=== PATIENT | female | born 1965 | race Hispanic/Latino ===

== ENCOUNTER 2018-05-28 10:01 | Inpatient (IN) | payer MEDICARE ==
[2018-05-28 10:05] VITALS: BMI 19.4
[2018-05-28 10:06] VITALS: O2SAT 99
--- NOTE | 2018-05-28 11:48 | ED PDOC ---
HPI: Psych/Substance Abuse Time Seen by Provider: 05/28/18 10:26 Chief Complaint (Nursing): Psychiatric Evaluation History Per: Patient Additional Complaint(s): Pt. states since Monday she's had worsening depression and suicidal thoughts which became even worse this morning. Pt. states she wants to take a lot of pills to "sleep." States symptoms began after she started Effexor prescribed to her by her psychiatrist. Denies HI, hallucinations, pain, dizziness, SOB. Past Medical History Reviewed: Historical Data, Nursing Documentation, Vital Signs Vital Signs: Last Vital Signs Temp 98.4 F 05/28/18 10:05 Pulse 79 05/28/18 10:05 Resp 17 05/28/18 10:05 BP 116/77 05/28/18 10:05 Pulse Ox 99 05/28/18 10:05 - Medical History PMH: Depression - Surgical History Surgical History: (x2) - Family History Family History: States: No Known Family Hx - Home Medications Home Medications: Ambulatory Orders Medication Instructions Recorded Clonazepam [Klonopin] 2 mg PO Q12 05/28/18 Venlafaxine [Effexor XR] 37.5 mg PO DAILY 05/28/18 - Allergies Allergies/Adverse Reactions: Allergies Allergy/AdvReac Type Severity Reaction Status Date / Time No Known Allergies Allergy Verified 05/28/18 10:10 Review of Systems ROS Statement: Except As Marked, All Systems Reviewed And Found Negative Psych: Positive for: Depression, Suicidal ideation Physical Exam - Physical Exam Appears: Positive for: Well, Non-toxic, No Acute Distress Skin: Positive for: Normal Color, Warm. Negative for: Rash Eye Exam: Positive for: Normal appearance ENT: Positive for: Normal ENT Inspection Neck: Positive for: Normal, Painless ROM Cardiovascular/Chest: Positive for: Regular Rate, Rhythm Respiratory: Positive for: Normal Breath Sounds. Negative for: Respiratory Di stress Gastrointestinal/Abdominal: Positive for: Normal Exam, Soft. Negative for: Tenderness Back: Positive for: Normal Inspection Neurologic/Psych: Positive for: Alert, Oriented (x3), Mood/Affect (depressed mood, cooperative) - Laboratory Results Result Diagrams: 05/28/18 12:10 05/28/18 12:10 - ECG ECG: Positive for: Interpreted By Me ECG Rhythm: Positive for: Sinus Rhythm. Negative for: ST/T Changes O2 Sat by Pulse Oximetry: 99 - Radiology X-Ray: Interpreted by Me (CXR) X-Ray Interpretation: No Acute Disease - Progress ED Course And Treament: Labs, EKG, CXR, crisis eval ordered. Pt. placed on 1:1. UA showed UTI. Urine C&S, macrbid PO ordered. Pt evaluated by CW who spoke with Dr. Maldonado who requests pt. to be admitted. Disposition - Clinical Impression Clinical Impression: UTI (urinary tract infection), Bipolar disorder, unspecified - Patient ED Disposition Is Patient to be Admitted: Yes - Disposition Disposition Time: 14:15 Condition: FAIR
[2018-05-28 12:21] LABS: BASO % 0.8 % (0.0-2.0); EOS # 0.2 K/uL (0.0-0.7); EOS % 2.8 % (0.0-4.0); HEMOGLOBIN 12.7 g/dL (12.0-16.0); LYMPH # 1.8 K/uL (1.0-4.3); LYMPH % 31.1 % (20.0-40.0); MEAN CELL VOLUME 86.2 fl (81.0-99.0); MEAN CORPUSCULAR HGB CONC 33.6 g/dL (33.0-37.0); MEAN PLATELET VOLUME 8.5 fl (7.2-11.7); MONO # 0.5 K/uL (0.0-0.8); MONO % 9.5 % (0.0-10.0); NEUT # 3.2 K/uL (1.8-7.0); NEUT % 55.8 % (50.0-75.0); RBC 4.4 Mil/uL (3.80-5.20); RED CELL DISTRIBUTION WIDTH 13.1 % (11.5-14.5); WHITE BLOOD COUNT 5.6 K/uL (4.8-10.8)
[2018-05-28 12:35] LABS: ALB/GLOB RATIO 1.2 (1.0-2.1); ALBUMIN 4.1 g/dL (3.5-5.0); ALT/SGPT 23 U/L (9-52); AST/SGOT 18 U/L (14-36); BLOOD UREA NITROGEN 14 mg/dl (7-17); CALCIUM 9.3 mg/dL (8.4-10.2); GFR NON-AFRICAN AMERICAN > 60
[2018-05-28 12:40] LABS: ACETAMINOPHEN < 10.0 ug/ml (10.0-30.0); SALICYLATE < 1.0 mg/dl
--- NOTE | 2018-05-28 12:53 | CARD ---
APPROVED REPORT Date of service: 05/28/2018 EKG Measurement Heart [id number] [id number] <Conclusion> Normal sinus rhythm with sinus arrhythmia Normal ECG
[2018-05-28 13:27] LABS: BARBITURATES, UR NEGATIVE (NEGATIVE); BENZODIAZEPINES, UR POSITIVE (NEGATIVE); OPIATES, UR NEGATIVE (NEGATIVE); PHENCYCLIDINE, UR NEGATIVE (NEGATIVE)
[2018-05-28 13:30] LABS: SQUAMOUS EPITHIAL 12 /hpf (0-5); URINE BILIRUBIN NEGATIVE (NEGATIVE); URINE BLOOD MODERATE (NEGATIVE); URINE CLARITY TURBID (Clear); URINE COLOR YELLOW (YELLOW); URINE GLUCOSE (UA) NEG (NEGATIVE); URINE LEUKOCYTE ESTERASE LARGE Leu/uL (Negative); URINE PROTEIN NEGATIVE (NEGATIVE); URINE UROBILINOGEN 0.2-1.0 mg/dL (0.2-1.0); WBC CLUMPS RARE /hpf
[2018-05-28 13:45] LABS: URINE BACTERIA MOD /hpf
--- NOTE | 2018-05-28 17:00 | RAD ---
Date of service: 05/28/2018 HISTORY: clearance COMPARISON: No prior. FINDINGS: LUNGS: No active pulmonary disease. PLEURA: No significant pleural effusion identified, no pneumothorax apparent. CARDIOVASCULAR: No aortic atherosclerotic calcification present. Normal cardiac size. No pulmonary vascular congestion. OSSEOUS STRUCTURES: No significant abnormalities. VISUALIZED UPPER ABDOMEN: Normal. OTHER FINDINGS: None. IMPRESSION: No acute cardiopulmonary disease appreciated.
[2018-05-28] MEDS ORDERED: Magnesium Hydroxide Susp 30 ml UD PO PRN (17:52)
[2018-05-28] MEDS ORDERED: DiphenhydrAMINE 50 mg/ml Inj IM PRN (17:52)
[2018-05-28] MEDS ORDERED: Alum-Mag Hydrox-Simethicone Susp (30 mL) PO PRN (17:52)
--- NOTE | 2018-05-28 18:22 | PCM.BM ---
<Justice Can Danny - Last Filed: 05/28/18 18:18> Treatment Plan Problems - Problems identified on initial assessmt Suicidal Ideation Date Initiated: 05/28/18 Time Initiated: 18:00 Assessment reference: NA medication nonadherence Date Initiated: 05/28/18 Time Initiated: 18:00 Assessment reference: NA ineffective Impulse Control Date Initiated: 05/28/18 Time Initiated: 18:00 Assessment reference: NA High Risk: Injury Date Initiated: 05/28/18 Time Initiated: 18:00 Assessment reference: NA Social Isolation Date Initiated: 05/28/18 Time Initiated: 18:00 Assessment reference: NA Suicidal Behaviors Date Initiated: 05/28/18 Time Initiated: 18:00 Assessment reference: NA <Sonja Bowie - Last Filed: 05/31/18 15:33> Treatment assets and liabiliti Patient Assests: adapts well, cooperative, resourceful, self-reliant, ADL independent, physically healthy, good support system (Pt. reports having a loving relationship with boyfriend of 6 months who pt. refers to as her fianc. Pt. reports having a supportive relationship with 2 adult sons and frequent communication with family in [place] (recently visited for 20 days). ), negotiates basic needs, good past tx response, cognitively intact Patient Liabilities: live alone Family Contact Family involvement: Family/SO is involved Family contact: Patient agrees to contact, Family has been contacted by patient, Telephone contact initiated by staff Family contact name: Jay(fiance)([phone])/Kyle(son) ([phone]) Family contacted how many times per week?: 2 Family contact comment: [facility] placed call to pts boyfriend (Jay [phone]) to discuss pts progress on 3NP and address family concerns. Hooker Up provided clinical updates regarding pts progress since admission and current presentation on 3NP. Pts boyfriend notified of pts active 48 hour notice and request to be discharged. [facility]er Up provided psychoeducation regarding nature for tx provided on 3NP, 48 hour notice, and possible screening fo involuntary commitment. [facility]er Up provided information regarding pts current medication regimen and tx being recommended. Pts expressed understanding of the above. Pts boyfriend reporting knowing pt for past 6 months and always having known her to be sort of depressed but expressed that pt. currently looks as good as she ever has. Pts boyfriend denied having any concerns regarding pts safety or possible discharge, stating She doesnt seem like shes in any distress. Pts boyfriend explained that pt. has a safety plan that includes contacting him, her sons, and outpatient psychiatrist if pt feels unsafe. Pts boyfriend confirmed that pt. is welcome to stay with him and that he is willing to stay in her apartment upon discharge to ensure that pt. is well. Jay reported that he will give patients son writers contact number so he can call com writer after work. Hooker Up to contact pts boyfriend on 05/31 with updates regarding pts progress on 3NP and discharge planning. . Hooker Up placed call to pts boyfriend (Jay [phone]) to discuss pts progress on 3NP, anticipated discharge of 06/01, and aftercare. [facility]er Up provided clinical updates regarding pts current presentation and explained concerns regarding pts long-term use of high dosages of Klonopin. Hooker Up emphasized importance of adherence with outpatient mental health services to ensure safety/functioning in the community and reduce risk of future hospitalizations. Patients boyfriend expressed understanding of the above and commitment to continue to support pts prioritization of tx and self-care upon discharge. Patient requested to be present when support staff go over discharge instructions with patient so he will be better able to assist with adherence. Patient to be picked up by Jay on 06/01 at 11am. The above discussed with patient and covering SW EM. . Hooker Up placed call to pts son (Kyle [phone]) to discuss pts progress on 3NP/anticipated discharge of 06/01, collect further collateral information, and address any family concerns. [facility]er Up left brief message on unidentified voicemail with call back numbers for this com writer and covering SW EM. Hooker Up awaiting response. - Goals for Treatment Patient goals for treatment: Patient to continue stabilization on 3NP through medication management and group/supportive therapy to address sxs of depression, reduce intensity and frequency of panic attacks, and eliminate SI. Patient to be encouraged to attend groups regularly to promote self-awareness, and insight, and improve compliance, coping skills and self-esteem. Patient to be provided with referral for appropriate level of aftercare to reduce risk of future hospitalizations and ensure safety in the community. Pt. identified having antidepressant changed to address side effects and return to outpatient providers as primary tx goal. Discharge/Continuing Care - Education Needs Education Needs: Family Medication, Family Diagnosis/Disease Process, Family Community resources, Family Aftercare Safety Plan, Patient Medication, Patient Diagnosis/Disease Process, Patient Coping Skills, Patient Community resources, Patient Aftercare Safety Plan - Discharge Discharge Criteria: Tolerates medication w/o severe side effects, Free of Suicidal thoughts, Normal sleep pattern, Ability to care for self, Reduction of target symptoms (panic attacks, sleep disturbances, poor appetite,) Discharge to:: Home, Other (Pt. to stay with/have bf stay with her for the weeks following discharge.) - Treatment Team Participation Patient/Family/SO Statement: 05/31/18 15:41 Patient attended tx team on 05/30 to discuss precursors to hospitalization and tx goals. Pt. presents as depressed and easily irritable. Pt. reported recently experiencing side effects of Effexor and that Abilify was too sedating and was making it difficult for pt. to work and tend to daily responsibilities, resulting in nonadherence. Pt. contributed sxs of depression and suicidal ideations to having visited family in [place] and having to leave them behind again. Pt. denied sxs of depression or suicidal ideations during discussion with tx team, stating I feel fine. Im back on my meds. Being here is whats making me depressed. Patient has a 4 hour notice expiring on 05/31 at 2pm. Tx team provided extensive psychoeducation regarding nature of tx provided on 3NP and importance of proper stabilization on 3NP to ensure functioning/safety in the community and reduce risk of future hospitalizations. Risks of long-term high doses of Klonopin discussed at length. Pt. expressed understanding but reported that Klonopin has been the only thing successful in managing pts panic attacks. Pt. minimally receptive to feedback, adamantly denying needing inpatient tx and requesting to be discharged to follow-up with outpatient services ([facility]). Pt. reported plan to stay with boyfriend upon discharge. Patient provided tx team with consent for family and outpatient providers. Discussed with Family/SO: Yes Was Patient/Family/SO present at Treatment Team Meeting: Yes <Monique Maldonado - Last Filed: 06/01/18 09:10> - Diagnosis (1) Bipolar disorder Status: Acute Interventions: 06/01/18 09:09 PHARMACOTHERAPY (2) Depression Status: Acute Interventions: PSYCHOTHERAPY, PHARMACOTHERAPY 06/01/18 09:09
--- NOTE | 2018-05-29 12:29 | PCM.PSYCH ---
Initial Psychiatric Evaluation - Initial Psychiatric Evaluation Type of Admission: Voluntary Legal Status: Capacity Chief Complaint (in patient's own words): I do not want to continue to live like that Patient's Reaction to Hospitalization: pt requested help History of Present Illness and Precipitating Events: pt is 52 ys old female with previous psychiatric diagnosis of bipolar disorder and panic disorder presented to ER with suicidal ideation with plan to overdose on her medications , pt reportedly has not been compliant with her medications for past five months , recently came back from a vacation she had in [place] to visit he family, became increasingly depressed and lonely , after she met with her provider, she was started on effexor, became more depressed and anxious with frequent panic attacks, poor sleep with early insomnia, poor appetite, low energy and anhedonia, pt started having suicidal ideation with plan to overdose on the unit pt presenting with low energy, hopeless and helpless, denied active thoughts of self harm on the unit denied perceptual disturbances Current Medications: Active Medications Generic Name Dose Route Start Last Admin Trade Name Freq PRN Reason Stop Dose Admin Acetaminophen 650 mg 05/28/18 17:52 Tylenol 325mg Tab PO Q4 PRN Pain, moderate (4-7) Al Hydrox/Mg Hydrox/Simethicone 30 ml 05/28/18 17:52 Maalox Plus 30 Ml PO Q4 PRN Dyspepsia Aripiprazole 5 mg 05/29/18 12:11 Abilify PO 05/29/18 12:12 STAT STA Aripiprazole 10 mg 05/30/18 09:00 Abilify PO DAILY HAILEY Clonazepam 0.25 mg 05/29/18 13:00 Klonopin PO TID HAILEY Diphenhydramine HCl 50 mg 05/28/18 17:52 Benadryl IM Q6 PRN Extrapyramidal S/S Unable PO Diphenhydramine HCl 50 mg 05/28/18 17:52 Benadryl PO Q6 PRN Extrapyramidal Symptoms Diphenhydramine HCl 50 mg 05/28/18 21:20 05/28/18 22:37 Benadryl PO 50 mg HS PRN Administration Sleep Haloperidol 5 mg 05/28/18 17:52 Haldol PO Q4 PRN Agitation Haloperidol Lactate 5 mg 05/28/18 17:52 Haldol IM Q4 PRN Agitation, Unable to Take PO Lorazepam 2 mg 05/28/18 17:52 Ativan IM Q4 PRN Anxiety/Agitation,Unable PO Lorazepam 2 mg 05/28/18 17:52 Ativan PO Q4 PRN Anxiety/Agitation Magnesium Hydroxide 30 ml 05/28/18 17:52 Milk Of Magnesia PO HS PRN Constipation Mirtazapine 7.5 mg 05/29/18 22:00 Remeron PO HS HAILEY Past Psychiatric History - Past Psychiatric History Explanation of prior treatment: one hospitalization two years ago after suicidal attempt by overdose History of ETOH/Drug Use: non reported History of Family Illness: mother history of bipolar depression Pertinent Medical Hx (Current Medical&Sleep Prob, Allergies): Allergies Allergy/AdvReac Type Severity Reaction Status Date / Time No Known Allergies Allergy Verified 05/28/18 10:10 Clonazepam [Klonopin] 2 mg PO Q12 05/28/18 Venlafaxine [Effexor XR] 37.5 mg PO DAILY 05/28/18 Mental Status Examination - Personal Presentation Personal Presentation: Looks stated age - Affect Affect: Constricted, Depressed - Motor Activity Motor Activity: Psychomotor Retardation - Reliability in Providing Information Reliability in Providing Information: Poor, due to altered mood - Speech Speech: Relevant - Mood Mood: Depressed, Anxious - Formal Thought Process Formal Thought Process: Circumstantial - Obsessions/Compulsions Obsessions: No Compulsions: No - Cognitive Functions Orientation: Person, Place, Situation Sensorium: Alert Attention/Concentration: Easily distracted Estimate of Intelligence: Average Judgement: Imparied, as evidence by: Poor judgement - Risk Risk: Suicidal, Diminished functioning - Strength & Assets Inventory Strength & Assets Inventory: Employment history - Limitations Additional comments: poor compliance DSM 5 DX - DSM 5 DSM 5 Diagnosis: bipolar ii disorder MRE depressed severe panic disorder - Recommended/Plan of Treatment Treatment Recommendations and Plan of Treatment: pt will be started on abilify 5 mg , will be increased to 10mg klonopin 0.25mg tid, will be discontinued gradually remeron 7.5mg qhs CBT group and supportive therapy
--- NOTE | 2018-05-29 12:49 | CP.PCM.CON ---
History of Present Illness - History of Present Illness History of Present Illness: Medicine Consult Note 52 year old female patient, with PMHx of bipolar disorder and panic disorder, seen and evaluated in psych for UTI. Patient states that she came to the hospital because she was beginning to feel more depressed after taking her medication for depression. She states that she wants to leave the hospital and doesn't like being here. During her hospital stay she was told she had a UTI however is not currently experiencing any pain at this time and denies pain with urination. She denies any N/V/F/SOB/CP. PMHx: Bipolar disorder, panic disorder PSHx: Section FHx: Mother with bipolar depression SH: Admits to vaping, alcohol use, denies illicit drug use ALL: NKDA Review of Systems - Constitutional Constitutional: As Per HPI - Psychiatric Psychiatric: Abnormal Sleep Pattern, Depression Past Patient History - Past Social History Smoking Status: Never Smoked - CARDIAC Hx Cardiac Disorders: No - PULMONARY Hx Respiratory Disorders: No - NEUROLOGICAL Hx Neurological Disorder: No - HEENT Hx HEENT Problems: No - RENAL Hx Chronic Kidney Disease: No - ENDOCRINE/METABOLIC Hx Endocrine Disorders: No - HEMATOLOGICAL/ONCOLOGICAL Hx Blood Disorders: No - INTEGUMENTARY Hx Dermatological Problems: No - MUSCULOSKELETAL/RHEUMATOLOGICAL Hx Musculoskeletal Disorders: No - GASTROINTESTINAL Hx Gastrointestinal Disorders: No - GENITOURINARY/GYNECOLOGICAL Hx Genitourinary Disorders: No - PSYCHIATRIC Hx Depression: Yes - SURGICAL HISTORY Hx Surgeries: Yes Hx Section: Yes (2 c section, children are grown) - ANESTHESIA Hx Anesthesia: Yes Hx Anesthesia Reactions: No Meds Allergies/Adverse Reactions: Allergies Allergy/AdvReac Type Severity Reaction Status Date / Time No Known Allergies Allergy Verified 05/28/18 10:10 - Medications Medications: Current Medications Acetaminophen (Tylenol 325mg Tab) 650 mg PO Q4 PRN PRN Reason: Pain, moderate (4-7) Al Hydrox/Mg Hydrox/Simethicone (Maalox Plus 30 Ml) 30 ml PO Q4 PRN PRN Reason: Dyspepsia Aripiprazole (Abilify) 5 mg PO STAT STA Stop: 05/29/18 12:12 Aripiprazole (Abilify) 10 mg PO DAILY HAILEY Clonazepam (Klonopin) 0.25 mg PO TID HAILEY Diphenhydramine HCl (Benadryl) 50 mg IM Q6 PRN PRN Reason: Extrapyramidal S/S Unable PO Diphenhydramine HCl (Benadryl) 50 mg PO Q6 PRN PRN Reason: Extrapyramidal Symptoms Diphenhydramine HCl (Benadryl) 50 mg PO HS PRN PRN Reason: Sleep Last Admin: 05/28/18 22:37 Dose: 50 mg Haloperidol (Haldol) 5 mg PO Q4 PRN PRN Reason: Agitation Haloperidol Lactate (Haldol) 5 mg IM Q4 PRN PRN Reason: Agitation, Unable to Take PO Lorazepam (Ativan) 2 mg IM Q4 PRN PRN Reason: Anxiety/Agitation,Unable PO Lorazepam (Ativan) 2 mg PO Q4 PRN PRN Reason: Anxiety/Agitation Magnesium Hydroxide (Milk Of Magnesia) 30 ml PO HS PRN PRN Reason: Constipation Mirtazapine (Remeron) 7.5 mg PO HS HAILEY Physical Exam - Constitutional Appears: Non-toxic, No Acute Distress - Eye Exam Pupil Exam: NORMAL ACCOMODATION - Respiratory Exam Respiratory Exam: Clear to Auscultation Bilateral, NORMAL BREATHING PATTERN - Cardiovascular Exam Cardiovascular Exam: REGULAR RHYTHM - GI/Abdominal Exam GI & Abdominal Exam: Normal Bowel Sounds, Soft - Extremities Exam Extremities exam: Positive for: normal capillary refill, pedal pulses present. Negative for: pedal edema - Back Exam Back exam: NORMAL INSPECTION. absent: tenderness - Neurological Exam Neurological exam: Alert - Psychiatric Exam Psychiatric exam: Depressed, Flat Affect - Skin Skin Exam: Warm Results - Vital Signs Recent Vital Signs: Last Vital Signs Temp 96.8 F L 05/29/18 09:14 Pulse 72 05/29/18 09:14 Resp 17 05/29/18 09:14 BP 104/75 05/29/18 09:14 Pulse Ox 99 05/28/18 20:43 - Labs Result Diagrams: 05/28/18 12:10 05/28/18 12:10 Labs: Laboratory Results - last 24 hr 05/28/18 05/28/18 05/29/18 12:32 12:32 05:45 Triglycerides 57 Cholesterol 158 LDL Cholesterol Direct 86 HDL Cholesterol 50 Thyroxine (T4) 8.00 TSH 3rd Generation 1.24 Urine Color Yellow Urine Clarity Turbid Urine pH 6.0 Ur Specific [place] 1.010 Urine Protein Negative Urine Glucose (UA) Neg Urine Ketones Negative Urine Blood Moderate Urine Nitrate Positive H Urine Bilirubin Negative Urine Urobilinogen 0.2-1.0 Ur Leukocyte Esterase Large Urine RBC (Auto) 43 H Urine WBC Clumps (Auto) Rare H Urine Microscopic WBC 860 H Ur Squamous Epith Cells 12 H Urine Bacteria Mod Urine Opiates Screen Negative Urine Methadone Screen Negative Ur Barbiturates Screen Negative Ur Phencyclidine Scrn Negative Ur Amphetamines Screen Negative U Benzodiazepines Scrn Positive U Oth Cocaine Metabols Negative U Cannabinoids Screen Negative Assessment & Plan - Assessment and Plan (Free Text) Assessment: 52 year old female patient, with PMHx of bipolar disorder and panic disorder, seen and evaluated in psych for UTI. Plan: 1. Urinary tract infection - Acute - UA: Urine nitrate positive, leuckocyte esterase large - Urine C&S: Gram - deonna - C/w Macrobid 100mg Q12 x 7 days 2. Bipolar disorder and panic disorder - Chronic - Per psych recs: Patient started on abilify 5mg, will be increased to 10mg. Klonopin 0.25mg tid, will be discontinued gradually. Remeron 7.5mg qhs. CBT group and supportive therapy 3. DVT prophylaxis - SCDs - Encourage ambulation daily - Date & Time Date: 05/29/18 Time: 12:48
--- NOTE | 2018-05-30 15:13 | PCM.PYCHPN ---
Psychiatric Progress Note - Psychiatric Progress Note Patient seen today, length of contact: PT EVALUATED DISCUSSED WITH TEAM CHART REVIEWED Patient Chief Complaint: I slept much better Problems Identified/Issues Discussed: pt evaluated with treatment team, reported improved sleep and appetite with starting the remeron, indicated that her anxiety much less with the discontinuation of effexor, psychoeducation provided to pt in reference to negative effects of high dose of klonopin pt denied side effects for abilify or remeron, denied any current active thoughts of self harm, denied perceptual disturbances Medical Problems: one hospitalization two years ago after suicidal attempt by overdose DSM 5 Symptoms Update: bipolar disorder depressed Medication Change: No Medical Record Reviewed: Yes Mental Status Examination - Cognitive Function Orientation: Person, Place, Situation Attention: WNL Concentration: WNL Association: WNL Fund of Knowledge: WNL Decription of patient's judgement and insights: partial insight fair judgment - Mood Mood: Depressed, Anxious - Affect Affect: Constricted, Depressed - Formal Thought Process Formal Thought Process: Circumstantial - Suicidal Ideation Suicidal Ideation: No - Homicidal Ideation Homicidal Ideation: No Goal/Treatment Plan - Goal/Treatment Plan Need for Continued Stay: Severe depression anxiety, Discharge may exacerbated symptoms Progress Toward Problem(s) and Goals/Treatment Plan: abilify will be increased to 10mg klonopin 0.25mg tid, will be discontinued gradually remeron 7.5mg qhs CBT group and supportive therapy
--- NOTE | 2018-05-31 14:03 | PCM.PYCHPN ---
Psychiatric Progress Note - Psychiatric Progress Note Patient seen today, length of contact: PT EVALUATED DISCUSSED WITH TEAM CHART REVIEWED Patient Chief Complaint: I will follow up with my therapist Problems Identified/Issues Discussed: pt evaluated , less guarded and more interactive with staff, reported interrupted sleep yesterday, discussed increasing remeron, no reported side effects of medications, pt stated feeling less anxious, brighter affect, denied any current active thoughts of self harm on the unit, denied perceptual disturbances Medical Problems: one hospitalization two years ago after suicidal attempt by overdose DSM 5 Symptoms Update: bipolar II disorder depressed generalized anxiety disorder Medication Change: Yes (increase remeron) Medical Record Reviewed: Yes Mental Status Examination - Cognitive Function Orientation: Person, Place, Situation Attention: WNL Concentration: WNL Association: WNL Fund of Knowledge: WN Decription of patient's judgement and insights: partial insight fair judgment - Mood Mood: Depressed, Anxious - Affect Affect: Constricted, Depressed - Formal Thought Process Formal Thought Process: Circumstantial - Suicidal Ideation Suicidal Ideation: No - Homicidal Ideation Homicidal Ideation: No Goal/Treatment Plan - Goal/Treatment Plan Need for Continued Stay: Severe depression anxiety, Discharge may exacerbated symptoms Progress Toward Problem(s) and Goals/Treatment Plan: abilify w 10mg klonopin 0.25mg tid, remeron 15mg qhs CBT group and supportive therapy
[2018-06-01 09:18] VITALS: BP 131/78; PULSE 69; RESP 19; TEMP 98.1
--- NOTE | 2018-06-01 10:03 | PCM.PYCHDC ---
Mental Status Examination - Mental Status Examination Orientation: Person, Place, Situation, Time Memory: Intact Mood: Neutral Affect: Broad Speech: Appropriate Attention: WNL Concentration: WNL Association: WNL Fund of Knowledge: WNL Formal Thought Process: No Impairment Description of patient's judgement and insight: partial insight fair judgment Psychotic Thoughts and Behaviors: pt denied psychotic symptoms, non elicited Suicidal Ideation: No Current Homicidal Ideation?: No Discharge Summary - Discharge Note Reason for Hospitalization: pt is 52 ys old female with previous psychiatric diagnosis of bipolar disorder and panic disorder presented to ER with suicidal ideation with plan to overdose on her medications , pt reportedly has not been compliant with her medications for past five months , recently came back from a vacation she had in [place] to visit he family, became increasingly depressed and lonely , after she met with her provider, she was started on effexor, became more depressed and anxious with frequent panic attacks, poor sleep with early insomnia, poor appetite, low energy and anhedonia, pt started having suicidal ideation with plan to overdose on the unit pt presenting with low energy, hopeless and helpless, denied active thoughts of self harm on the unit denied perceptual disturbances Consultations:: List each consultation separately and include: 1. Reason for request. 2. Findings. 3. Follow-up Summary of Hospital Course include:: 1. Description of specific treatment plan utilized for patients during their course of treatmen. 2. Summarize the time- course for resolution of acute symptoms and/or regressed behaviors. 3. Describe issues identified and worked on during hospitalization. 4. Describe medication utilized. 5. Describe medical problems identified and treated. 6. Reassessment of suicide risk Summary of Hospital Course: pt on admission was presenting with increased anxiety depressed mood poor sleep and poor appetite pt was started on remeron, and abilify, dose of klonopin was gradually downtitrated to 0.25 mg bid , PSYCHOEDUCATION WAS PROVIDED TO THE PATIENT IN REFERENCE TO THE NEGATIVE EFFECTS OF BENZODIAZEPINES ON MOOD AND MEMORY PT WAS COMPLIANT WITH MEDICATIONS AND TREATMENT, NO REPORTED SIDE EFFECTS ON DISCHARGE HER MENTAL STATUS WAS STABLE, PT DENIED SUICIDAL OR HOMICIDAL IDEATION DENIED PERCEPTUAL DISTURBANCES HAND UMBRELLA TIPPER ARRANGED FOLLOW UP AT [facility] - Diagnosis (1) Bipolar disorder Current Visit: Yes Status: Acute (2) Depression Current Visit: Yes Status: Acute - Final Diagnosis (DSM 5) Condition upon Discharge: FAIR Disposition: HOME/ ROUTINE Follow-up Treatment Plan: abilify w 10mg klonopin 0.25mg tid, remeron 15mg qhs CBT group and supportive therapy Prescriptions/Medication Reconciliation: ARIPiprazole [Abilify] 10 mg PO DAILY 30 Days #30 tab clonazePAM [Klonopin] 0.25 mg PO BID #15 tab Mirtazapine [Remeron] 15 mg PO HS 30 Days #30 tab - Antipsychotic Medications Pt discharged on 2 or more routine antipsychotic medications: No
== END 2018-06-01 11:45 | disposition home or self-care (01) | DRG 885 ==
LOC: H.ER 10:01 → H.ERHOLD 14:02 → H.PSYCH 16:45
PROVIDERS: ADMIT Psychiatry & Neurology Psychiatry; ATTEND Psychiatry & Neurology Psychiatry
PROC: GZHZZZZ Group Psychotherapy (ICD-10-PCS; principal; 2018-05-28)
PROC: GZ58ZZZ Individual Psychotherapy, Cognitive-Behavioral (ICD-10-PCS; 2018-05-28)
DX: F31.81 Bipolar II disorder (principal); N39.0 Urinary tract infection, site not specified; R45.851 Suicidal ideations; B96.20 Unspecified Escherichia coli [E. coli] as the cause of diseases classified elsewhere; F41.0 Panic disorder [episodic paroxysmal anxiety]; F41.1 Generalized anxiety disorder; G47.00 Insomnia, unspecified; Z91.14 Patient's other noncompliance with medication regimen; Z91.5 Personal history of self-harm; Z81.8 Family history of other mental and behavioral disorders